=== PATIENT | female | born 1960 | race Caucasian/White ===

== ENCOUNTER 2017-12-22 07:10 | Day surgery (SDC) | payer OTHER ==
--- NOTE | 2017-12-06 02:40 | HP ---
PREOPERATIVE HISTORY AND PHYSICAL: DATE OF ADMISSION/SURGERY: 12/22/17 [facility] DATE OF OFFICE VISIT: 12/02/17 ATTENDING SURGEON: Jaylin Huffman MD * (DICTATED BY NIRU FRAUSTO) PROCEDURE: Right shoulder arthroscopic decompression and debridement, possible rotator cuff repair with biceps tenodesis. CHIEF COMPLAINT: Right shoulder. HISTORY OF PRESENT ILLNESS: Sofia is a 57-year-old female who presents to the clinic for right shoulder pain. There is a longstanding injury from 2012 with some partial thickness tear of the right shoulder. She has failed conservative measures and has therefore agreed to undergo a right shoulder arthroscopic decompression and debridement, possible rotator cuff repair with biceps tenodesis with Dr. Huffman on 12/22/17. PAST MEDICAL HISTORY: 1. Hypertension. 2. Hyperlipidemia. 3. Depression. 4. GERD. 5. Exercise-induced asthma. 6. History of migraines. 7. She is a borderline diabetic. PAST SURGICAL HISTORY: 1. Left ankle surgery. 2. Right knee arthroscopy. 3. [place] teeth removal. The patient denies prior complications with anesthesia. MEDICATIONS: 1. Diclofenac sodium 75 mg 1 by mouth twice a day with food for pain. 2. Propranolol 50 mg 1 by mouth every morning. 3. Wellbutrin 150 mg 1 by mouth every day. ALLERGIES: MORPHINE and SULFA ANTIBIOTICS. FAMILY HISTORY: Positive for diabetes, heart disease, and hypertension. SOCIAL HISTORY: She lives with her spouse. 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 She is a former smoker, quit a year ago. She reports occasional alcohol consumption. She denies illegal drug use. REVIEW OF SYSTEMS: A 14-point review of systems was reviewed with the patient. Positive for current complaint, otherwise negative. Denies chest pain, shortness of breath, fevers, chills, history of bleeding disorder, history of DVT or PE. PHYSICAL EXAMINATION GENERAL: Well-developed, well-nourished 57-year-old female, in no acute distress. VITAL SIGNS: Height 64, weight 230, blood pressure 132/70, respiratory rate 18 , BMI 39.5. HEENT: Normocephalic, atraumatic. PERRLA. Throat clear. NECK: Supple. PULMONARY: Lungs are clear to auscultation bilaterally. No wheezing, rhonchi, or rales. CARDIO: Regular rate and rhythm. S1, S2. No murmurs, gallops, or rubs. No edema. ABDOMEN: Positive bowel sounds. Soft and nontender. MUSCULOSKELETAL: Right upper extremity, skin is intact. Tenderness over the bicipital groove and subacromial space. Forward flexion to 140, abduction 85, external rotation 55, internal rotation to lumbar spine. +4/5 strength to rotator cuff testing with pain. Positive Pierre's. Positive impingement, [place] Angel , [place]'s and Speed's. +2 radial pulse. Sensation is intact to light touch distally. NEURO: Alert and oriented x3. Cranial nerves II through XII are grossly intact. Sensation intact to light touch. DIAGNOSTIC STUDIES: MRI of the right shoulder revealed evidence of impingement , partial thickness rotator cuff tear including the bicipital groove. IMPRESSION: Right shoulder rotator cuff repair and biceps tendinitis. PLAN: The patient is scheduled to undergo a right shoulder arthroscopic decompression and debridement and possible rotator cuff repair with biceps tenodesis with Dr. Huffman on 12/22/17. She will return to the office in 10 to 14 days postop for followup and suture removal. Percocet was sent to the patient's pharmacy for postop pain management. NIRU FRAUSTO [id number]/[facility] #: [id number] MTDD
[2017-12-22] MEDS ORDERED: Bupivacaine 0.25% SDV* 30 ML ONE (07:26)
[2017-12-22] MEDS ORDERED: Metoclopramide TAB* 10 MG ONE (07:30)
[2017-12-22] MEDS ORDERED: Famotidine IV* 10 MG/ML 2 ML (20 mg) ONE (07:31)
[2017-12-22] MEDS ORDERED: ceFAZolin 2 GM in 100 MLS NS (*) BAG IVPB ONE (07:53)
[2017-12-22] MEDS ORDERED: Ketorolac INJ* 30 MG/ML 1 ML VIAL ONE (08:14)
[2017-12-22] MEDS ORDERED: fentaNYL* 50 MCG/ML 2 ML VIAL (100 MCG VIAL) ONE ×2 (08:14→11:36)
[2017-12-22] MEDS ORDERED: Dexamethasone IV* 4 MG/ML 1 ML (4 MG) ONE (08:14)
[2017-12-22] MEDS ORDERED: Ondansetron INJ* 2 MG/ML VIAL ONE ×2 (08:14→12:54)
[2017-12-22] MEDS ORDERED: Propofol* 10 MG/ML 20 ML BTL IV PUSH ONE (08:14)
[2017-12-22] MEDS ORDERED: Midazolam* 1 MG/ML 5 ML VIAL (5 MG) ONE (08:14)
[2017-12-22] MEDS ORDERED: Lidocaine 2% PF * 5 ML VIAL ONE (08:14)
[2017-12-22] MEDS ORDERED: Cisatracurium* 2 MG/ML MDV 5 ML ONE (08:14)
[2017-12-22] MEDS ORDERED: ROPIVACAINE 5 MG/ML 30 ML BTL (0.5%) ONE (08:47)
[2017-12-22] MEDS ORDERED: EPHEDrine (Pressors)* 50 MG/ML VIAL ONE (10:05)
[2017-12-22] MEDS ORDERED: Naloxone* 0.4 MG/ML 1 ML VIAL IV PRN (10:59)
[2017-12-22] MEDS ORDERED: fentaNYL* 50 MCG/ML 2 ML VIAL (100 MCG VIAL) IV PRN (10:59)
[2017-12-22] MEDS ORDERED: Ondansetron INJ* 2 MG/ML VIAL IV PRN (10:59)
[2017-12-22] MEDS ORDERED: oxyCODONE/Acetamin 5/325 MG* TAB PO PRN (10:59)
[2017-12-22 14:03] VITALS: BP 144/69
--- NOTE | 2017-12-30 08:25 | OP ---
DATE OF OPERATION: 12/22/17 - [facility] DATE OF : 64 SURGEON: Jaylin Huffman MD. LOAD PLANNER: NIRU Maldonado. ANESTHESIOLOGIST: Dr. Valverde. PRE-OP DIAGNOSES: Right shoulder high-grade partial-thickness tear of the supraspinatus with bicipital tendinitis and impingement. POST-OP DIAGNOSES: High-grade partial-thickness tear of the supraspinatus as well as subscapularis, bicipital tendinitis with flap tear and minimal osteoarthritis. OPERATIVE PROCEDURE: Right shoulder arthroscopy with: 1. Extensive glenohumeral debridement including biceps tenotomy. 2. Subacromial decompression with acromioplasty. 3. Rotator cuff repair, supraspinatus in a double row fashion as well as infraspinatus and subscapularis. COMPLICATIONS: None. ESTIMATED BLOOD LOSS: Minimal. IMPLANTS USED: Two Multifix and two 4.75 Healicoil. INDICATIONS: Sofia Dooley is a 57-year-old female who sustained a work related injury in 2012 when she fell. She has failed conservative treatment. After many many discussions with the patient about treating this surgically, she has elected to proceed with surgical treatment. Risks, and benefits were discussed at length including, but not limited to bleeding, infection, damage to nerves, vessels, surrounding structures, wound nonhealing, persistent pain, need for further surgery, scarring, stiffness, incomplete relief of symptoms and risk of anesthesia, risk of retear. She elected to proceed. DESCRIPTION OF PROCEDURE: The patient was greeted in the preoperative area by the attending surgeon. The correct extremity was marked and consent was confirmed. The patient brought back to the operating suite where she was placed in a supine position on the operating table. She then underwent interscalene nerve block by the anesthesiologist after which she underwent general anesthesia with endotracheal intubation. She was positioned in the left lateral decubitus position, all bony prominences were padded. She was secured with a peg board. The right shoulder was prepped and draped in the usual sterile fashion beginning with chlorhexidine soap scrub, alcohol wipe, and final prep with ChloraPrep. After appropriate surgical pause indicating site, side, procedure, and administration of antibiotics, the posterolateral portal was made sharply with an 11 blade. The scope was introduced into the joint, joint was examined. There were grade 0 to 1 changes of the glenohumeral joint with mild fraying particularly superiorly. The superior labrum was torn, biceps was subluxed and there was a high grade tear of the subscapularis encompassing almost 30% to 40% of the tendon. The undersurface of the supraspinatus had high-grade tearing. There was abundant synovitis in the shoulder. The anterior portal was made in an outside-in fashion. The joint was examined and the debridement was done in the anterior, posterior, superior labrum. The biceps was then tenotomized. The shaver was used to debride back the anterior and posterior superior labrum. The undersurface of the subscapularis was evaluated carefully and had significant high-grade partial-thickness tearing. Once the intraarticular portion is completed the scope was placed in the subacromial space. There was abundant bursa in the subacromial space. The lateral portal was made in an outside-in fashion. Shaver was used to debride back the abundant bursa and skeletonized the undersurface of the acromion, which had a moderate-sized anterolateral spur. The 4-0 oval nirmala was then used to do an acromioplasty. The cuff was then probed and found to have evidence of previous healing along the bursal surface, it was a very thin and tenuous. The tear was completed of the supraspinatus using electrocautery and the shaver. At this point, the subscap was readily identified as well. Decision was made to repair as this was encompassing a significant portion of the subscap. Through a separate stab incision the lesser tuberosity was prepared using electrocautery and the bur to allow for bony bleeding bed. The suture was then passed through the subscap in a looped configuration then passed through a Multifix anchor, which was placed with excellent purchase to help restore the subscap. Attention was then directed to the supraspinatus and anterior portion of the infraspinatus. This was then debrided back to a stable layer. The greater tuberosity was skeletonized in the usual fashion with the rasp electrocautery and then a 4-0 oval nirmala. Once this was done two 4.75 Healicoil was placed in the medial row, through separate stab incision with excellent purchase. Sutures were passed through the tendon in the horizontal mattress configuration, tied down. Then the remaining sutures were passed through a Multifix anchor for a lateral row fixation. Final images were obtained. The wounds were copiously irrigated with sterile saline. Portals were closed with 3-0 nylon. Sterile dressings were applied as well as a Cryo/Cuff. She was awoken from anesthesia and transferred to PACU in stable condition She will be nonweightbearing. She will be in the sling for 6 weeks. She will be discharged on pain medication. I will see the patient back in 10 to 14 days. DVT prophylaxis was considered but deferred due to no previous personal or family history. [id number]/[facility] #: [id number] VERONICA
== END 2017-12-22 14:04 | disposition home or self-care (01) ==
LOC: OREAST 07:10
PROVIDERS: ATTEND Orthopaedic Surgery
DX: S46.011A Strain of muscle(s) and tendon(s) of the rotator cuff of right shoulder, initial encounter (principal); M75.21 Bicipital tendinitis, right shoulder; S43.491A Other sprain of right shoulder joint, initial encounter; W19.XXXA Unspecified fall, initial encounter; Y92.89 Other specified places as the place of occurrence of the external cause; Y99.0 Civilian activity done for income or pay; I10 Essential (primary) hypertension; G89.18 Other acute postprocedural pain; E78.5 Hyperlipidemia, unspecified; J45.990 Exercise induced bronchospasm; R73.03 Prediabetes; K21.9 Gastro-esophageal reflux disease without esophagitis; F32.9 Major depressive disorder, single episode, unspecified
CPT/HCPCS: A9270-GY; C1713; J1100; J1885; J2250; J2405; J2704; J2795; J3010

== ENCOUNTER 2018-06-11 07:53 | Day surgery (SDC) | payer OTHER ==
[~2018-06-11 07:53] MED LIST: Buffered Lidocaine 0.9% SYRIN* 5 ML/SYR SYRINGE INTRADERM ONE; Dexamethasone IV* 4 MG/ML 1 ML (4 MG) IV SLOW PU ONE; Famotidine IV* 10 MG/ML 2 ML (20 mg) IV ONE; Propranolol TAB* 60 MG PO ONE
[2018-06-11] MEDS ORDERED: Famotidine IV* 10 MG/ML 2 ML (20 mg) ONE (08:15)
[2018-06-11] MEDS ORDERED: Dexamethasone IV* 4 MG/ML 1 ML (4 MG) ONE (08:15)
[2018-06-11] MEDS ORDERED: Midazolam* 1 MG/ML 2 ML VIAL (2 MG) ONE (08:54)
[2018-06-11] MEDS ORDERED: fentaNYL* 50 MCG/ML 2 ML VIAL (100 MCG VIAL) ONE ×4 (08:54→10:49)
[2018-06-11] MEDS ORDERED: Ondansetron INJ* 2 MG/ML VIAL ONE (09:14)
[2018-06-11] MEDS ORDERED: Propofol* 10 MG/ML 20 ML BTL IV PUSH ONE (09:14)
[2018-06-11] MEDS ORDERED: Ketorolac INJ* 30 MG/ML 1 ML VIAL ONE (09:14)
[2018-06-11] MEDS ORDERED: DiMENhydriNATE IV* 50 MG/ML VIAL ONE (09:45)
[2018-06-11] MEDS ORDERED: Scopolamine 1.5 mg* PATCH ONE (09:45)
[2018-06-11] MEDS ORDERED: Naloxone* 0.4 MG/ML 1 ML VIAL IV PRN (09:49)
[2018-06-11] MEDS ORDERED: DiMENhydriNATE IV* 50 MG/ML VIAL IV PUSH PRN (09:49)
[2018-06-11] MEDS: fentaNYL* 50 MCG/ML 2 ML VIAL (100 MCG VIAL) IV PRN ×5 (09:58→10:51)
[2018-06-11] MEDS ORDERED: Scopolamine 1.5 mg* PATCH TRANSDERM SCH (10:00)
[2018-06-11] MEDS ORDERED: oxyCODONE/Acetamin 5/325 MG* TAB PO ONE (10:17)
[2018-06-11] MEDS ORDERED: oxyCODONE/Acetamin 5/325 MG* TAB ONE (10:18)
[2018-06-11 11:59] VITALS: BP 155/95
--- NOTE | 2018-06-11 18:23 | OP ---
AMENDED REPORT NOW INCLUDES DATE OF OPERATION - ESIGNED BEFORE ADJUSTMENT * DATE OF OPERATION: 06/11/18 - [facility] DATE OF : 64 SURGEON: Fermin Bond MD ANESTHESIA: General endotracheal. PRE-OP DIAGNOSIS: Postmenopausal bleeding. POST-OP DIAGNOSES: Postmenopausal bleeding plus endometrial polyp. OPERATIVE PROCEDURE: D and C hysteroscopy, MyoSure resection of endometrial polyp. COMPLICATIONS: None. FINDINGS: On exam under anesthesia, uterus in mid position, sounded to 10 cm, the cervix, vagina and vulva appeared normal. On hysteroscopy, there was a large, approximately 3 cm long endometrial polyp, may be a cm wide, soft and coming from the fundus all the way down to the lower uterine segment. Otherwise , the cavity appeared normal. DESCRIPTION OF PROCEDURE: The patient identified and procedure identified as D and C hysteroscopy. The patient was taken to the operating room and prepped and draped in the usual fashion in dorsal lithotomy position under general anesthesia. Two single-toothed tenaculum was placed to the anterior lip of the cervix and uterus was sounded to 10 cm. The hysteroscope inserted, the above findings were noted. The MyoSure device was opened and set up using MyoSure reach because this was up the fundus. The MyoSure was utilized to resect the large polyp down to the level of flush with rest of the endometrium. Sharp curette inserted, sharp curettage performed with a gritty sensation felt throughout the circumference. The total deficit was 124 cc. All sponge and instrument counts were correct and the patient was returned to the recovery room in stable condition. [id number]/[facility] #: [id number] [facility]ALTHJean
== END 2018-06-11 12:11 | disposition home or self-care (01) ==
LOC: OR 07:53
PROVIDERS: ATTEND Obstetrics & Gynecology
DX: N95.0 Postmenopausal bleeding (principal); N84.0 Polyp of corpus uteri; Z68.37 Body mass index [BMI] 37.0-37.9, adult; G47.33 Obstructive sleep apnea (adult) (pediatric); Z87.891 Personal history of nicotine dependence; I10 Essential (primary) hypertension; J45.909 Unspecified asthma, uncomplicated; R73.03 Prediabetes
CPT/HCPCS: 88305; A9270-GY; J1100; J1240; J1885; J2250; J2405; J2704; J3010

== ENCOUNTER 2019-05-03 06:20 | Day surgery (SDC) | payer OTHER ==
--- NOTE | 2019-04-06 09:58 | HP ---
Amended report to enter cosigning physician. PREOPERATIVE HISTORY AND PHYSICAL: DATE OF SURGERY: 05/03/19 ATTENDING SURGEON: Dr. Jaylin Huffman* (dictated by NIRU Frausto). PROCEDURE: Right shoulder arthroscopic rotator cuff repair, decompression, and debridement. CHIEF COMPLAINT: Right shoulder pain. HISTORY OF PRESENT ILLNESS: Sofia is a 58-year-old female who presents to clinic for followup of right shoulder pain after a work-related injury. She had a previous rotator cuff repair on 12/22/17. She re-injured her shoulder and has re- torn the rotator cuff. She has failed conservative measures and therefore, agreed to undergo right shoulder arthroscopic rotator cuff repair, decompression, and debridement with Dr. Huffman on 05/03/19. PAST MEDICAL HISTORY: 1. Hypertension. 2. Hyperlipidemia. 3. Depression. 4. GERD. 5. Exercise-induced asthma. 6. History of migraines. 7. Borderline diabetic. PAST SURGICAL HISTORY: Left ankle surgery, right knee arthroscopy, and wisdom teeth removal. Denies prior complications with anesthesia. MEDICATIONS: 1. Propranolol 60 mg 1 every day. 2. Wellbutrin 150 mg 1 every day. ALLERGIES: MORPHINE and SULFA ANTIBIOTICS. FAMILY HISTORY: Father with diabetes, heart disease, and hypertension. Denies family history of DVT or PE. SOCIAL HISTORY: She lives with her spouse. 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 She is a former smoker who quit 2 years ago. She reports occasional alcohol consumption. She denies illicit drug use. REVIEW OF SYSTEMS: A 14-point review of systems was reviewed with the patent. Positive for current complaint; otherwise, negative. Denies chest pain, shortness of breath, fever, chills, history of bleeding disorder, history of DVT or PE. PHYSICAL EXAMINATION GENERAL: A 58-year-old well-developed, well-nourished female in no acute distress. VITAL SIGNS: Height 64, weight 211. Pulse 70, blood pressure 120/78, respiratory rate 18. BMI 36.2. HEENT: Normocephalic, atraumatic. PERRLA. Throat clear. NECK: Supple. PULMONARY: Lungs clear to auscultation bilaterally. No wheezing, rhonchi, or rales. HEART: Regular rate and rhythm. S1 and S2. No murmurs, gallops, or rubs. No edema. ABDOMEN: Positive bowel sounds, soft, and nontender. NEUROLOGIC: Alert and oriented x3. Cranial nerves grossly intact. MUSCULOSKELETAL: Right upper extremity: Well-healed surgical incision. No warmth or erythema. Nontender to palpation. Forward flexion and abduction 150. Strength +4/5 to rotator cuff testing with pain. Positive impingement of Speed's, Hawking's, [place]'s; +2 radial pulse. Sensation intact to light touch distally. DIAGNOSTIC STUDIES: MRI revealed a small supraspinatus tear with 1 cm of retraction. Subscapularis appears intact. IMPRESSION: Right shoulder rotator cuff tear. PLAN: The patient is scheduled to undergo a right shoulder arthroscopic rotator cuff repair, decompression, and debridement with Dr. Huffman on . Percocet will be used for postop pain management. She will follow up in 10 to 14 days postop for followup with suture removal. NIRU FRAUSTO [id number]/[facility] #: [id number] MTDD
[~2019-05-03 06:20] MED LIST changes: +Acetaminophen TAB* 325 MG PO ONE; -Buffered Lidocaine 0.9% SYRIN* 5 ML/SYR SYRINGE INTRADERM ONE; +Buffered Lidocaine 1% SYRIN* 1 ML/SYRINGE INTRADERM ONE; -Dexamethasone IV* 4 MG/ML 1 ML (4 MG) IV SLOW PU ONE; -Famotidine IV* 10 MG/ML 2 ML (20 mg) IV ONE; +Famotidine TAB* 20 MG PO ONE; +Gabapentin CAP(*) 300 MG PO ONE; +Lactated Ringers 1000 ML Bag* 1,000 ML IV SCH; +Metoclopramide IV* 5 MG/ML 2 ML VIAL IV SLOW PU ONE; -Propranolol TAB* 60 MG PO ONE; +celeCOXIB CAP* 200 MG PO ONE
[2019-05-03] MEDS ORDERED: celeCOXIB CAP* 100 MG ONE (06:29)
[2019-05-03] MEDS ORDERED: Gabapentin CAP(*) 300 MG ONE (06:30)
[2019-05-03] MEDS ORDERED: Metoclopramide IV* 5 MG/ML 2 ML VIAL ONE (06:30)
[2019-05-03] MEDS ORDERED: Acetaminophen TAB* 325 MG ONE (06:30)
[2019-05-03] MEDS ORDERED: Buffered Lidocaine 1% SYRIN* 1 ML/SYRINGE INTRADERM ONE (06:31)
[2019-05-03] MEDS ORDERED: Famotidine TAB* 20 MG ONE (06:31)
[2019-05-03] MEDS ORDERED: ceFAZolin 2 GM in NS PREMIX(*) 2 GM/100 ML BAG IVPB ONE (06:31)
[2019-05-03] MEDS ORDERED: Famotidine IV* 10 MG/ML 2 ML (20 mg) ONE (06:31)
[2019-05-03] MEDS ORDERED: ROPIVACAINE 5 MG/ML 30 ML BTL (0.5%) ONE (07:14)
[2019-05-03] MEDS ORDERED: Lidocaine 1% MPF ** 5 ML VIAL ONE (07:15)
[2019-05-03] MEDS ORDERED: fentaNYL* 50 MCG/ML 2 ML VIAL (100 MCG VIAL) ONE (07:15)
[2019-05-03] MEDS ORDERED: Midazolam* 1 MG/ML 2 ML VIAL (2 MG) ONE (07:15)
[2019-05-03] MEDS ORDERED: Rocuronium* 10 MG/ML VIAL ONE (07:15)
[2019-05-03] MEDS ORDERED: Propofol* 10 MG/ML 20 ML BTL ONE (07:16)
[2019-05-03] MEDS ORDERED: Naloxone* 0.4 MG/ML 1 ML VIAL IV PRN (08:27)
[2019-05-03] MEDS ORDERED: DiMENhydriNATE IV* 50 MG/ML VIAL IV PUSH PRN (08:27)
[2019-05-03] MEDS ORDERED: fentaNYL* 50 MCG/ML 2 ML VIAL (100 MCG VIAL) IV PRN (08:27)
[2019-05-03] MEDS ORDERED: HYDROmorphone INJ1* 1 MG/ML SYRINGE IV PRN (08:27)
[2019-05-03] MEDS ORDERED: Ketorolac INJ* 30 MG/ML 1 ML VIAL IV PRN (08:27)
[2019-05-03] MEDS ORDERED: HYDROcodone/ACETAMIN 5-325 MG* 1 TAB PO PRN (08:27)
[2019-05-03] MEDS ORDERED: EPHEDrine (Pressors)* 50 MG/ML VIAL ONE (08:29)
[2019-05-03] MEDS ORDERED: Ondansetron INJ* 2 MG/ML VIAL ONE (08:55)
[2019-05-03] MEDS ORDERED: Neostigmine Methylsulfate* 3 MG/3 ML SYRINGE ONE (09:39)
[2019-05-03] MEDS ORDERED: Glycopyrrolate IV* 0.2 MG/ML 1 ML VIAL ONE (09:40)
[2019-05-03] MEDS ORDERED: DiMENhydriNATE IV* 50 MG/ML VIAL ONE (10:07)
--- NOTE | 2019-05-03 11:14 | OP ---
CC: PCP OPERATIVE REPORT: DATE OF OPERATION: 05/03/19 DATE OF : 64 SURGEON: Jaylin Huffman MD PUBLIC FINANCE SPECIALIST: NIRU Najera An visual merchandising assistant was needed for the entirety of the case to help with positioning, retraction, and was utilized throughout all portions of the case. ANESTHESIOLOGIST: Dr. Nice. ANESTHESIA: General interscalene block PRE-OP DIAGNOSIS: Right shoulder retear of the supraspinatus, failed rotator cuff repair of the supraspinatus tendon with impingement. POST-OP DIAGNOSIS: Right shoulder retear of the supraspinatus, failed rotator cuff repair of the supraspinatus tendon with impingement. OPERATIVE PROCEDURE: Right shoulder arthroscopy with: 1. Extensive glenohumeral debridement. 2. Revision of subacromial decompression. 3. Revision of rotator cuff repair in a double-row fashion with Regeneten patch augment. 4. Removal of foreign body x3. COMPLICATIONS: None. ESTIMATED BLOOD LOSS: Minimal. DISPOSITION: Stable. IMPLANTS USED: 1. One Healicoil. 2. One Multifix. 3. One Regeneten patch size medium. INDICATIONS: Sofia Dooley is a 59-year-old female who has had a work- related injury in 2012. She underwent a subsequent rotator cuff repair and she was doing initially okay and plateaued with therapy. She continued to struggle. We did an MR arthrogram demonstrated a rotator cuff tear retear. After extensive discussion about the risks and benefits of surgical treatment versus nonoperative treatment, she has elected to proceed. She had undergone surgery and then she continued to struggle. She was having pain again, night pain was not as bad as before. She had failed conservative management. We did an MR arthrogram demonstrated a retear. Risks and benefits of the surgery were discussed at length included, but not limited to bleeding; infection; damage to nerves, vessels, and surrounding structures; wound nonhealing; persistent pain; need for further surgery; scaring; stiffness; incomplete relief of symptoms; and risks of anesthesia, and need further surgery. She has elected to proceed. DESCRIPTION OF PROCEDURE: The patient was greeted in the preoperative area by the attending surgeon. The correct extremity was marked and the consent was confirmed. She underwent interscalene nerve block by the anesthesiologist after which she was brought back to the operating suite, where she was placed in supine position on the operating table. She then underwent general anesthesia with endotracheal intubation after which she was placed in the left lateral decubitus position with an axillary roll. All bony prominences were padded. She was secured with a pegboard. The right arm was draped unsterile with 10 pounds traction. The right shoulder was then prepped and draped in usual sterile fashion beginning with chlorhexidine soap, scrub, and alcohol wipe and a final prep with ChloraPrep. After appropriate surgical pause indicating site, side, procedure, and administration of antibiotics, the posterolateral portal was made sharply with an 11-blade. The scope was introduced into the joint. There was abundant significant scar. The glenohumeral joint had grade 0 to 1 changes. The anterior labrum had some mild fraying. There was a scar tissue extending from the inferior recess anteriorly. The subscap appeared to be intact. The sutures from previous repair, one of the sutures was visualized. The anterior portal was made in an outside-in fashion. There was again dense thick scar tissue that was present enough that I bent the needle from the localization, once the cannula was placed the shaver was used with the anterior and posterior labrum, removed the band of scar tissue that connected to the inferior recess. The subscap was visualized and found to be intact. There was a tear of the supraspinatus, very anterior aspect, the remainder of the cuff looked okay. Once the debridement was completed, attention was directed to the subacromial space. The scope was positioned in the subacromial space. There was abundant thick bursa that was present on the edges like subdeltoid. The undersurface of the acromion was skeletonized using electrocautery device. The shaver was used to debride back the thick bursa and scar tissue that was over the rotator cuff, was gently probed to point out where the tear was. It was well challenging because of the scar tissue that was built. Once this was identified, the biter was used to actually remove some of the thick scar and the cuff was visualized. There was evidence of an anterior aspect of the supraspinatus tendon tear. The yasmeen and the electrocautery device was used to skeletonize the footprint. Many remaining sutures were removed. Approximately, 3 remaining sutures were removed. Once this was done, the cuff tissue was then debrided back to find a stable bleeding edge. The attention was directed to the acromioplasty. There was a small ridge that was present. The undersurface of the acromion was skeletonized. A 4-0 oval nirmala was used to do a gentle acromioplasty to remove a small ridge. The attention was directed to the rotator cuff. A small microfracture was done and a 4.75 Healicoil was placed through a separate stab incision. Care was taken to not penetrate the previous anchor nor cause a fracture of the greater tuberosity. The sutures were then passed through the tendon in a horizontal mattress configuration and arthroscopic knot tying technique was used. One of the sutures did rupture, therefore, 2 Ortho Braid sutures were then passed also in a horizontal mattress configuration and then passed through the MultiFIX suture to allow for double-row and single-row fixation. This helped to get the dog ears down as well. The MultiFIX was then passed for a lateral-row fixation , and then this helped to provide for single-row fixation of the posterior aspect of the supraspinatus. After this was completed, the cuff was well approximated. At this point, incision was made to try to augment as this was a revision case and she is young, we used a medium size Regeneten patch brought to the field. It was then placed arthroscopically and then secured medially with tendon napoleon and laterally with PEEK napoleon. This was found to be well secured. Final images were obtained. The wounds were copiously irrigated with sterile saline. Portals were closed with 3-0 nylon. Sterile dressing were applied, a cryo/cuff and UltraSling were applied. She was awoken from anesthesia and transferred to the PACU in stable condition. POSTOPERATIVE PLAN: She will be nonweightbearing 6 weeks in a sling. She will be discharged on pain medication. We will start her on therapy at about 4 weeks. She will be discharged on pain medication, antibiotics, DVT prophylaxis was considered, but deferred due to no previous personal or family history. I will see the patient back in 10 to 14 days. [id number]/[facility] #: [id number] VERONICA
[2019-05-03 16:02] VITALS: BP 109/59
== END 2019-05-03 12:45 | disposition home or self-care (01) ==
LOC: OREAST 06:20
PROVIDERS: ATTEND Orthopaedic Surgery
DX: S46.011D Strain of muscle(s) and tendon(s) of the rotator cuff of right shoulder, subsequent encounter (principal); M75.41 Impingement syndrome of right shoulder; X58.XXXD Exposure to other specified factors, subsequent encounter; Y93.9 Activity, unspecified; Y92.89 Other specified places as the place of occurrence of the external cause; Y99.0 Civilian activity done for income or pay; Z87.891 Personal history of nicotine dependence; G89.18 Other acute postprocedural pain; I10 Essential (primary) hypertension; E78.5 Hyperlipidemia, unspecified; K21.9 Gastro-esophageal reflux disease without esophagitis; R73.03 Prediabetes
CPT/HCPCS: A9270-GY; C1713; J0690; J1240; J2250; J2405; J2704; J2710; J2765; J2795; J3010